=== PATIENT | female | born 1940 | race African-American/Black ===

== ENCOUNTER 2019-04-23 16:21 | Inpatient (IN) | payer OTHER, BC ==
[~2019-04-23] VITALS: Ht 175.3 cm; Wt 99.8 kg
[2019-04-23] VITALS (22 sets, daily range): BP systolic 54–135
[2019-04-23] MEDS ORDERED: LevALBUTEROL HCL 1.25 MG/0.5 ML *CONC.* VIAL.NEB (XOPENEX CONC.) INH PRN (18:15)
[2019-04-23] MEDS ORDERED: IPRATROPIUM BROM 0.5 MG/2.5 ML VIAL.NEB (ATROVENT) INH PRN (18:15)
[2019-04-23] MEDS ORDERED: NOREPINEPHRINE BITARTRATE 4 MG in NS 246 ML IV PRN (18:30)
[2019-04-23] MEDS ORDERED: ALBUMIN HUMAN 5% 500 ML IV ONE (18:30)
[2019-04-23 18:52] LABS: HEMATOCRIT 24.5 % (36-48); MEAN CORPUSCULAR HEMOGLOBIN 32 pg (27-31); MEAN CORPUSCULAR HGB CONC 33 % (32-36); MEAN CORPUSCULAR VOLUME 97 fL (79.0-98.0); RED BLOOD CELL COUNT(AUTO) 2.52 MIL/uL (4.2-6.2); RED CELL DISTRIBUTION WIDTH 19.9 % (9.0-15.0); WHITE BLOOD COUNT (AUTO) 9.9 K/uL (4.8-10.8)
[2019-04-23] MEDS: IPRATROPIUM BROM 0.5 MG/2.5 ML VIAL.NEB (ATROVENT) INH SCH (19:00)
[2019-04-23] MEDS: LevALBUTEROL HCL 1.25 MG/0.5 ML *CONC.* VIAL.NEB (XOPENEX CONC.) INH SCH (19:00)
[2019-04-23 19:01] LABS: INR 1.3 (0.8-1.2); PROTHROMBIN TIME 13.6 SECS (9.5-12.5)
[2019-04-23 19:05] LABS: ALANINE AMINOTRANSFERASE 13 U/L (12-78); ALBUMIN 2.4 g/dL (3.4-4.8); ANION GAP 11 (5-15); ASPARTATE AMINOTRANSFERASE 41 U/L (10-37); CALCIUM 9.1 mg/dL (8.4-11.0); CHLORIDE 99 mmol/L (98-107); CREATININE 2.24 mg/dL (0.55-1.30); GLUCOSE 82 mg/dL (70-99); POTASSIUM 4.2 mmol/L (3.5-5.1); SODIUM SERUM 134 mmol/L (136-145); UREA NITROGEN, BLOOD 55 mg/dL (8-21)
[2019-04-23 19:13] LABS: PLATELET COUNT (AUTO) 27 K/uL (130-430)
[2019-04-23 19:15] LABS: ATYPICAL LYMPHOCYTES % 1 % (0-0); BAND % (MANUAL) 8 % (0-6); BASOPHILS % (MANUAL) 0 % (0-2); EOSINOPHILS % (MANUAL) 2 % (0-7); LYMPHOCYTES % (MANUAL) 4 % (20-46); MONOCYTES % (MANUAL) 7 % (0-11)
[2019-04-23] MEDS ORDERED: NOREPINEPHRINE BITARTRATE 16 MG in NS 234 ML IV PRN (19:30)
[2019-04-23] MEDS ORDERED: VANCOMYCIN HCL 2,000 MG in NS 250 ML IV SCH (21:00)
[2019-04-23] MEDS ORDERED: AMIKACIN SULFATE 500 MG in D5W 100 ML IV ONE (21:00)
[2019-04-23] MEDS ORDERED: CEFEPIME 1 GM in D5W 50 ML IV SCH (21:00)
[2019-04-23] MEDS ORDERED: VANCOMYCIN HCL 1000 MG/VIAL IV ONE (21:52)
[2019-04-23] MEDS ORDERED: metroNIDAZOLE 500 mg/NS 200 ML IV ONE (21:52)
[2019-04-23] MEDS ORDERED: AMIKACIN SULFATE 500 MG/2 ML VIAL ONE (21:52)
[2019-04-23] MEDS: metroNIDAZOLE 500 mg/NS 100 ML IV SCH (22:28)
[2019-04-23] MEDS ORDERED: ALBUMIN HUMAN 25% 100 ML IV ONE (23:02)
[2019-04-23] MEDS ORDERED: ALBUMIN HUMAN 25% 100 ML IV SCH (23:30)
[2019-04-24] VITALS (44 sets, daily range): BP systolic 81–145
[2019-04-24] MEDS: LevALBUTEROL HCL 1.25 MG/0.5 ML *CONC.* VIAL.NEB (XOPENEX CONC.) INH SCH ×4 (00:47→18:58)
[2019-04-24] MEDS: IPRATROPIUM BROM 0.5 MG/2.5 ML VIAL.NEB (ATROVENT) INH SCH ×4 (00:47→18:58)
[2019-04-24] MEDS: metroNIDAZOLE 500 mg/NS 100 ML IV SCH ×3 (05:27→21:11)
[2019-04-24 07:16] LABS: ALANINE AMINOTRANSFERASE 14 U/L (12-78); ALBUMIN 2.8 g/dL (3.4-4.8); ANION GAP 11 (5-15); ASPARTATE AMINOTRANSFERASE 52 U/L (10-37); CALCIUM 9.2 mg/dL (8.4-11.0); CHLORIDE 99 mmol/L (98-107); CREATININE 2.43 mg/dL (0.55-1.30); GLUCOSE 91 mg/dL (70-99); POTASSIUM 4.1 mmol/L (3.5-5.1); SODIUM SERUM 135 mmol/L (136-145); TOTAL BILIRUBIN 2.4 mg/dL (0.0-1.0); UREA NITROGEN, BLOOD 57 mg/dL (8-21)
[2019-04-24 07:17] LABS: BASOPHILS % (AUTO) 0.3 % (0.0-2.0); EOSINOPHILS # (AUTO) 0.7 K/uL (0.0-0.4); EOSINOPHILS % (AUTO) 7.7 % (0.0-4.0); HEMATOCRIT 32.4 % (36-48); HEMOGLOBIN 10.7 g/dL (12.0-16.0); LYMPHOCYTES # (AUTO) 0.8 K/uL (1.0-5.5); LYMPHOCYTES % (AUTO) 8.9 % (20.5-51.5); MEAN CORPUSCULAR HEMOGLOBIN 31 pg (27-31); MEAN CORPUSCULAR HGB CONC 33 % (32-36); MEAN CORPUSCULAR VOLUME 93 fL (79.0-98.0); MONOCYTES # (AUTO) 0.8 K/uL (0.0-1.0); MONOCYTES % (AUTO) 8.7 % (1.7-9.3); NEUTROPHILS # (AUTO) 6.7 K/uL (1.8-7.7); RED CELL DISTRIBUTION WIDTH 20.3 % (9.0-15.0); WHITE BLOOD COUNT (AUTO) 9.1 K/uL (4.8-10.8)
[2019-04-24] MEDS ORDERED: COMMUNICATION ORDER XX ONE (07:30)
[2019-04-24] MEDS ORDERED: *TPN PER PHARMACY XX PRN (07:30)
[2019-04-24 07:32] LABS: PLATELET COUNT (AUTO) 46 K/uL (130-430)
[2019-04-24 07:33] LABS: NEUTROPHILS % (AUTO) 74.4 % (40.0-70.0)
[2019-04-24 07:45] LABS: PHOSPHORUS 3.4 mg/dL (2.7-4.5)
[2019-04-24] MEDS ORDERED: HYDROCORTISONE SOD SUCC 100 MG/2 ML VIAL IVP ONE (08:30)
[2019-04-24] MEDS: HYDROCORTISONE SOD SUCC 100 MG/2 ML VIAL IVP SCH ×2 (13:32→22:10)
[2019-04-24] MEDS ORDERED: DIPH25CA83 PEG (14:25)
[2019-04-24] MEDS ORDERED: HYDC.5% TP (14:25)
[2019-04-24] MEDS ORDERED: PHYTONADIONE 10 MG/ML AMP SUBCUT ONE (14:25)
[2019-04-24] MEDS ORDERED: LR 1,000 ML IV.SOLN IV ONE (14:25)
[2019-04-24] MEDS ORDERED: NS 50 ML BAG IV ONE (14:25)
[2019-04-24] MEDS ORDERED: MIDO10TA PEG (14:25)
[2019-04-24] MEDS ORDERED: FAMO-132 PEG (14:25)
[2019-04-24] MEDS ORDERED: ACET325T53 PEG (14:25)
[2019-04-24] MEDS ORDERED: fentaNYL CITRATE/PF 100 MCG/2 ML AMP IVP ONE (14:25)
[2019-04-24] MEDS ORDERED: DARB100V IJ (14:25)
[2019-04-24] MEDS ORDERED: SEVOFLURANE 15 MIN GAS INH ONE (14:25)
[2019-04-24] MEDS ORDERED: NS IRRIG SOLN 1000 ML IR ONE (14:25)
[2019-04-24] MEDS: NOREPINEPHRINE BITARTRATE 16 MG in NS 234 ML IV PRN (14:28)
[2019-04-24 14:46] LABS: BASOPHILS % (AUTO) 0.3 % (0.0-2.0); EOSINOPHILS # (AUTO) 0.5 K/uL (0.0-0.4); EOSINOPHILS % (AUTO) 5.6 % (0.0-4.0); HEMATOCRIT 30.1 % (36-48); LYMPHOCYTES # (AUTO) 0.5 K/uL (1.0-5.5); LYMPHOCYTES % (AUTO) 5.3 % (20.5-51.5); MEAN CORPUSCULAR HEMOGLOBIN 31 pg (27-31); MEAN CORPUSCULAR HGB CONC 33 % (32-36); MEAN CORPUSCULAR VOLUME 92 fL (79.0-98.0); MONOCYTES # (AUTO) 0.7 K/uL (0.0-1.0); MONOCYTES % (AUTO) 7.9 % (1.7-9.3); NEUTROPHILS # (AUTO) 7.1 K/uL (1.8-7.7); NEUTROPHILS % (AUTO) 80.9 % (40.0-70.0); PLATELET COUNT (AUTO) 70 K/uL (130-430); RED BLOOD CELL COUNT(AUTO) 3.26 MIL/uL (4.2-6.2); RED CELL DISTRIBUTION WIDTH 20.6 % (9.0-15.0); WHITE BLOOD COUNT (AUTO) 8.8 K/uL (4.8-10.8)
[2019-04-24] MEDS ORDERED: fentaNYL CITRATE/PF 100 MCG/2 ML AMP IVP PRN ×2 (16:00)
[2019-04-24] MEDS ORDERED: ONDANSETRON HCL 4 MG/2 ML VIAL IVP PRN (16:00)
[2019-04-24] MEDS ORDERED: CHLO1LIQ2 MC (17:46)
[2019-04-24] MEDS ORDERED: SSREG SUBCUT (17:46)
[2019-04-24] MEDS ORDERED: ALBU2.5V7 INH (17:46)
[2019-04-24] MEDS ORDERED: IPRA4AER INH (17:46)
[2019-04-24] MEDS ORDERED: REGL10 PO (17:46)
[2019-04-24] MEDS ORDERED: BUDE6.9H INH (17:46)
[2019-04-24] MEDS ORDERED: ONDA2VIA IVP (17:46)
[2019-04-24] MEDS ORDERED: LORA1TAB IVP (17:46)
[2019-04-24] MEDS ORDERED: VERA80TA2 IVP (17:46)
[2019-04-24] MEDS ORDERED: [UNRECOGNIZED DRUG - CODE] IV (17:46)
[2019-04-24] MEDS ORDERED: [UNRECOGNIZED DRUG - OTHER] IV SCH ×8 (18:00)
[2019-04-24] MEDS ORDERED: TPN CENTRAL IV SCH ×8 (18:00)
[2019-04-24] MEDS ORDERED: POTASSIUM CHLORIDE IV SCH ×8 (18:00)
[2019-04-24] MEDS ORDERED: SODIUM CHLORIDE IV SCH ×8 (18:00)
[2019-04-24] MEDS: FAT EMULSIONS 250 ML IV SCH (18:08)
[2019-04-24] MEDS ORDERED: DIGOXIN 0.5 MG/2 ML AMP IVP ONE (20:00)
[2019-04-24] MEDS: NS IV SCH (22:12)
[2019-04-24] MEDS: AMIKACIN SULFATE IV SCH (22:12)
[2019-04-25] VITALS (32 sets, daily range): BP systolic 92–139
[2019-04-25] MEDS: INSULIN LISPRO SLIDING SCALE 100 UNITS/ML VIAL (humaLOG) SUBCUT PRN ×4 (00:27→17:26)
[2019-04-25] MEDS: LevALBUTEROL HCL 1.25 MG/0.5 ML *CONC.* VIAL.NEB (XOPENEX CONC.) INH SCH ×4 (01:11→19:47)
[2019-04-25] MEDS: IPRATROPIUM BROM 0.5 MG/2.5 ML VIAL.NEB (ATROVENT) INH SCH ×4 (01:12→19:48)
[2019-04-25] MEDS: metroNIDAZOLE 500 mg/NS 100 ML IV SCH ×3 (04:33→20:09)
[2019-04-25 05:40] LABS: HEMOGLOBIN 10.1 g/dL (12.0-16.0); MEAN CORPUSCULAR HEMOGLOBIN 31 pg (27-31); MEAN CORPUSCULAR HGB CONC 33 % (32-36); MEAN CORPUSCULAR VOLUME 94 fL (79.0-98.0); PLATELET COUNT (AUTO) 64 K/uL (130-430); RED BLOOD CELL COUNT(AUTO) 3.32 MIL/uL (4.2-6.2); RED CELL DISTRIBUTION WIDTH 20.8 % (9.0-15.0); WHITE BLOOD COUNT (AUTO) 10.8 K/uL (4.8-10.8)
[2019-04-25 06:08] LABS: INR 1.5 (0.8-1.2); PROTHROMBIN TIME 15.4 SECS (9.5-12.5)
[2019-04-25 06:19] LABS: ATYPICAL LYMPHOCYTES % 0 % (0-0); BAND % (MANUAL) 21 % (0-6); BASOPHILS % (MANUAL) 0 % (0-2); EOSINOPHILS % (MANUAL) 1 % (0-7); LYMPHOCYTES % (MANUAL) 7 % (20-46); METAMYELOCYTES % 2 % (0-0); MONOCYTES % (MANUAL) 6 % (0-11); MYELOCYTES % 1 % (0-0)
[2019-04-25] MEDS: HYDROCORTISONE SOD SUCC 100 MG/2 ML VIAL IVP SCH ×3 (06:22→21:36)
[2019-04-25 06:50] LABS: ANION GAP 17 (5-15); CALCIUM 8.9 mg/dL (8.4-11.0); CHLORIDE 102 mmol/L (98-107); CREATININE 2.44 mg/dL (0.55-1.30); GLUCOSE 201 mg/dL (70-99); POTASSIUM 4.3 mmol/L (3.5-5.1); SODIUM SERUM 139 mmol/L (136-145); UREA NITROGEN, BLOOD 53 mg/dL (8-21)
[2019-04-25 07:03] LABS: ALANINE AMINOTRANSFERASE 18 U/L (12-78); ALBUMIN 2.4 g/dL (3.4-4.8); ASPARTATE AMINOTRANSFERASE 81 U/L (10-37); PHOSPHORUS 4.2 mg/dL (2.7-4.5)
[2019-04-25] MEDS: PANTOPRAZOLE SODIUM 40 MG/VIAL (PROTONIX) IVP SCH (09:56)
[2019-04-25] MEDS: METOPROLOL TARTRATE 5 MG/5 ML VIAL IVP PRN ×3 (10:50→17:20)
[2019-04-25] MEDS: CEFEPIME 1 GM in D5W 50 ML IV SCH (13:59)
[2019-04-25] MEDS ORDERED: NS IV ONE (15:45)
[2019-04-25] MEDS ORDERED: PHYTONADIONE IV ONE (15:45)
[2019-04-25 16:37] LABS: VANCOMYCIN,RANDOM 22.5 ug/mL
[2019-04-25] MEDS: MORPHINE 2 MG/ML INJ. SYRINGE IVP PRN (17:10)
[2019-04-25] MEDS: FAT EMULSIONS 250 ML IV SCH (17:28)
[2019-04-25] MEDS ORDERED: NA PHOS IV SCH ×9 (18:00)
[2019-04-25] MEDS ORDERED: SODIUM CHLORIDE IV SCH ×9 (18:00)
[2019-04-25] MEDS ORDERED: [UNRECOGNIZED DRUG - OTHER] IV SCH ×9 (18:00)
[2019-04-25] MEDS ORDERED: SODIUM ACETATE IV SCH ×9 (18:00)
[2019-04-25] MEDS ORDERED: TPN CENTRAL IV SCH ×9 (18:00)
[2019-04-25] MEDS: NS IV SCH (21:35)
[2019-04-25] MEDS: AMIKACIN SULFATE IV SCH (21:35)
[2019-04-26] VITALS (27 sets, daily range): BP systolic 93–154
[2019-04-26] MEDS: INSULIN LISPRO SLIDING SCALE 100 UNITS/ML VIAL (humaLOG) SUBCUT PRN ×4 (00:15→17:42)
[2019-04-26] MEDS: MORPHINE 2 MG/ML INJ. SYRINGE IVP PRN (00:19)
[2019-04-26] MEDS: IPRATROPIUM BROM 0.5 MG/2.5 ML VIAL.NEB (ATROVENT) INH SCH ×4 (01:11→19:43)
[2019-04-26] MEDS: LevALBUTEROL HCL 1.25 MG/0.5 ML *CONC.* VIAL.NEB (XOPENEX CONC.) INH SCH ×4 (01:11→19:42)
[2019-04-26] MEDS: METOPROLOL TARTRATE 5 MG/5 ML VIAL IVP PRN ×3 (04:05→20:45)
[2019-04-26] MEDS: metroNIDAZOLE 500 mg/NS 100 ML IV SCH ×3 (04:40→21:01)
[2019-04-26] MEDS: HYDROCORTISONE SOD SUCC 100 MG/2 ML VIAL IVP SCH ×3 (05:40→21:01)
[2019-04-26 06:46] LABS: INR 1.7 (0.8-1.2); PROTHROMBIN TIME 16.6 SECS (9.5-12.5)
[2019-04-26 06:50] LABS: ANION GAP 15 (5-15); CALCIUM 8.8 mg/dL (8.4-11.0); CHLORIDE 102 mmol/L (98-107); CREATININE 2.61 mg/dL (0.55-1.30); GLUCOSE 267 mg/dL (70-99); POTASSIUM 3.8 mmol/L (3.5-5.1); SODIUM SERUM 140 mmol/L (136-145); UREA NITROGEN, BLOOD 63 mg/dL (8-21)
[2019-04-26 07:07] LABS: ALANINE AMINOTRANSFERASE 25 U/L (12-78); ALBUMIN 2.1 g/dL (3.4-4.8); ASPARTATE AMINOTRANSFERASE 107 U/L (10-37); TOTAL BILIRUBIN 1.4 mg/dL (0.0-1.0)
[2019-04-26 07:24] LABS: HEMATOCRIT 32.2 % (36-48); HEMOGLOBIN 10.4 g/dL (12.0-16.0); MEAN CORPUSCULAR HEMOGLOBIN 30 pg (27-31); MEAN CORPUSCULAR HGB CONC 32 % (32-36); MEAN CORPUSCULAR VOLUME 94 fL (79.0-98.0); RED BLOOD CELL COUNT(AUTO) 3.44 MIL/uL (4.2-6.2); RED CELL DISTRIBUTION WIDTH 20.6 % (9.0-15.0); WHITE BLOOD COUNT (AUTO) 15.5 K/uL (4.8-10.8)
[2019-04-26 07:34] LABS: PLATELET COUNT (AUTO) 42 K/uL (130-430)
[2019-04-26 08:06] LABS: PHOSPHORUS 4.3 mg/dL (2.7-4.5)
[2019-04-26] MEDS: PANTOPRAZOLE SODIUM 40 MG/VIAL (PROTONIX) IVP SCH (08:36)
[2019-04-26] MEDS: ENOXAPARIN SODIUM 30 MG/0.3 ML SYRINGE SUBCUT SCH (08:38)
[2019-04-26 09:27] LABS: BAND % (MANUAL) 15 % (0-6); BASOPHILS % (MANUAL) 0 % (0-2); EOSINOPHILS % (MANUAL) 0 % (0-7); LYMPHOCYTES % (MANUAL) 4 % (20-46); MONOCYTES % (MANUAL) 8 % (0-11)
[2019-04-26] MEDS ORDERED: COLISTIMETHATE SODIUM 75 MG in NS 50 ML IV ONE (12:15)
[2019-04-26] MEDS: CEFEPIME 1 GM in D5W 50 ML IV SCH (14:23)
[2019-04-26] MEDS: FAT EMULSIONS 250 ML IV SCH (17:43)
[2019-04-26] MEDS ORDERED: SODIUM ACETATE IV SCH ×9 (18:00)
[2019-04-26] MEDS ORDERED: TPN PERIPHERAL IV SCH ×9 (18:00)
[2019-04-26] MEDS ORDERED: [UNRECOGNIZED DRUG - OTHER] IV SCH ×9 (18:00)
[2019-04-26] MEDS ORDERED: SODIUM CHLORIDE IV SCH ×9 (18:00)
[2019-04-26] MEDS ORDERED: NA PHOS IV SCH ×9 (18:00)
[2019-04-26] MEDS: COLISTIMETHATE SODIUM 75 MG in NS 50 ML IV SCH (21:00)
[2019-04-27] VITALS (28 sets, daily range): BP systolic 90–125
[2019-04-27] MEDS: INSULIN LISPRO SLIDING SCALE 100 UNITS/ML VIAL (humaLOG) SUBCUT PRN ×3 (00:28→18:40)
[2019-04-27] MEDS: LevALBUTEROL HCL 1.25 MG/0.5 ML *CONC.* VIAL.NEB (XOPENEX CONC.) INH SCH ×4 (01:05→19:46)
[2019-04-27] MEDS: IPRATROPIUM BROM 0.5 MG/2.5 ML VIAL.NEB (ATROVENT) INH SCH ×4 (01:06→19:46)
[2019-04-27] MEDS: NOREPINEPHRINE BITARTRATE 16 MG in NS 234 ML IV PRN (02:33)
[2019-04-27] MEDS: metroNIDAZOLE 500 mg/NS 100 ML IV SCH ×3 (05:01→20:24)
[2019-04-27] MEDS: HYDROCORTISONE SOD SUCC 100 MG/2 ML VIAL IVP SCH ×2 (06:08→18:30)
[2019-04-27 06:27] LABS: BASOPHILS % (AUTO) 0.1 % (0.0-2.0); EOSINOPHILS % (AUTO) 0.1 % (0.0-4.0); HEMATOCRIT 30.9 % (36-48); HEMOGLOBIN 10.1 g/dL (12.0-16.0); LYMPHOCYTES # (AUTO) 0.7 K/uL (1.0-5.5); LYMPHOCYTES % (AUTO) 4.1 % (20.5-51.5); MEAN CORPUSCULAR HEMOGLOBIN 31 pg (27-31); MEAN CORPUSCULAR HGB CONC 33 % (32-36); MEAN CORPUSCULAR VOLUME 93 fL (79.0-98.0); MONOCYTES % (AUTO) 5.7 % (1.7-9.3); NEUTROPHILS # (AUTO) 15.6 K/uL (1.8-7.7); RED BLOOD CELL COUNT(AUTO) 3.31 MIL/uL (4.2-6.2); RED CELL DISTRIBUTION WIDTH 20.5 % (9.0-15.0); WHITE BLOOD COUNT (AUTO) 17.3 K/uL (4.8-10.8)
[2019-04-27 06:49] LABS: INR 1.5 (0.8-1.2); PROTHROMBIN TIME 15.6 SECS (9.5-12.5)
[2019-04-27 07:17] LABS: ALANINE AMINOTRANSFERASE 64 U/L (12-78); ALBUMIN 1.9 g/dL (3.4-4.8); ANION GAP 13 (5-15); ASPARTATE AMINOTRANSFERASE 323 U/L (10-37); CALCIUM 8.7 mg/dL (8.4-11.0); CHLORIDE 103 mmol/L (98-107); GLUCOSE 154 mg/dL (70-99); PHOSPHORUS 3.7 mg/dL (2.7-4.5); POTASSIUM 3.4 mmol/L (3.5-5.1); SODIUM SERUM 140 mmol/L (136-145); TOTAL BILIRUBIN 1.4 mg/dL (0.0-1.0); UREA NITROGEN, BLOOD 55 mg/dL (8-21)
[2019-04-27] MEDS: COLISTIMETHATE SODIUM 75 MG in NS 50 ML IV SCH ×2 (08:33→21:34)
[2019-04-27] MEDS: PANTOPRAZOLE SODIUM 40 MG/VIAL (PROTONIX) IVP SCH (08:33)
[2019-04-27] MEDS: ENOXAPARIN SODIUM 30 MG/0.3 ML SYRINGE SUBCUT SCH (08:34)
[2019-04-27 08:50] LABS: PLATELET COUNT (AUTO) 51 K/uL (130-430)
[2019-04-27] MEDS: CEFEPIME 1 GM in D5W 50 ML IV SCH (14:15)
[2019-04-27] MEDS ORDERED: SODIUM ACETATE IV SCH ×9 (18:00)
[2019-04-27] MEDS ORDERED: NA PHOS IV SCH ×9 (18:00)
[2019-04-27] MEDS ORDERED: SODIUM CHLORIDE IV SCH ×9 (18:00)
[2019-04-27] MEDS ORDERED: [UNRECOGNIZED DRUG - OTHER] IV SCH ×9 (18:00)
[2019-04-27] MEDS ORDERED: TPN PERIPHERAL IV SCH ×9 (18:00)
[2019-04-27] MEDS: FAT EMULSIONS 250 ML IV SCH (18:27)
[2019-04-27] MEDS: METOPROLOL TARTRATE 5 MG/5 ML VIAL IVP PRN (18:38)
[2019-04-27] MEDS ORDERED: HEPARIN SODIUM,PORCINE 5000 UNITS/ML VIAL ONE (21:54)
[2019-04-27] MEDS: CEFTAZIDIME/AVIBACTAM 0.94 GM in NS 100 ML IV SCH (22:10)
[2019-04-27] MEDS ORDERED: HEPARIN SODIUM, PORCINE 10,000 UNITS/ 10 ML VIAL MC ONE (22:15)
[2019-04-28] VITALS (28 sets, daily range): BP systolic 69–158
[2019-04-28] MEDS: NOREPINEPHRINE BITARTRATE 16 MG in NS 234 ML IV PRN (00:13)
[2019-04-28] MEDS: LevALBUTEROL HCL 1.25 MG/0.5 ML *CONC.* VIAL.NEB (XOPENEX CONC.) INH SCH ×4 (01:05→19:30)
[2019-04-28] MEDS: IPRATROPIUM BROM 0.5 MG/2.5 ML VIAL.NEB (ATROVENT) INH SCH ×4 (01:06→19:29)
[2019-04-28 05:32] LABS: HEMATOCRIT 30.2 % (36-48); HEMOGLOBIN 9.8 g/dL (12.0-16.0); MEAN CORPUSCULAR HEMOGLOBIN 31 pg (27-31); MEAN CORPUSCULAR HGB CONC 32 % (32-36); MEAN CORPUSCULAR VOLUME 94 fL (79.0-98.0); PLATELET COUNT (AUTO) 74 K/uL (130-430); RED BLOOD CELL COUNT(AUTO) 3.21 MIL/uL (4.2-6.2); RED CELL DISTRIBUTION WIDTH 20.2 % (9.0-15.0); WHITE BLOOD COUNT (AUTO) 20.1 K/uL (4.8-10.8)
[2019-04-28 05:51] LABS: SODIUM SERUM 139 mmol/L (136-145)
[2019-04-28] MEDS: metroNIDAZOLE 500 mg/NS 100 ML IV SCH ×3 (05:51→21:21)
[2019-04-28 05:52] LABS: ANION GAP 14 (5-15); ASPARTATE AMINOTRANSFERASE 74 U/L (10-37); CALCIUM 8.6 mg/dL (8.4-11.0); CHLORIDE 102 mmol/L (98-107); CREATININE 2.62 mg/dL (0.55-1.30); GLUCOSE 170 mg/dL (70-99); TOTAL BILIRUBIN 1.5 mg/dL (0.0-1.0); UREA NITROGEN, BLOOD 68 mg/dL (8-21)
[2019-04-28 05:53] LABS: ALANINE AMINOTRANSFERASE 36 U/L (12-78); ALBUMIN 1.6 g/dL (3.4-4.8)
[2019-04-28 06:05] LABS: ATYPICAL LYMPHOCYTES % 0 % (0-0); BAND % (MANUAL) 15 % (0-6); BASOPHILS % (MANUAL) 0 % (0-2); EOSINOPHILS % (MANUAL) 0 % (0-7); LYMPHOCYTES % (MANUAL) 6 % (20-46); METAMYELOCYTES % 0 % (0-0); MONOCYTES % (MANUAL) 5 % (0-11); MYELOCYTES % 2 % (0-0)
[2019-04-28] MEDS: INSULIN LISPRO SLIDING SCALE 100 UNITS/ML VIAL (humaLOG) SUBCUT PRN ×4 (06:14→23:58)
[2019-04-28] MEDS: HYDROCORTISONE SOD SUCC 100 MG/2 ML VIAL IVP SCH ×2 (06:33→18:05)
[2019-04-28 07:05] LABS: INR 1.3 (0.8-1.2); PROTHROMBIN TIME 13.6 SECS (9.5-12.5)
[2019-04-28] MEDS: COLISTIMETHATE SODIUM 75 MG in NS 50 ML IV SCH ×2 (09:17→21:21)
[2019-04-28] MEDS: ENOXAPARIN SODIUM 30 MG/0.3 ML SYRINGE SUBCUT SCH (10:21)
[2019-04-28 11:32] LABS: TRIGLYCERIDES 152 mg/dL (30-150)
[2019-04-28] MEDS ORDERED: HEPARIN SODIUM,PORCINE 5000 UNITS/ML VIAL IV ONE (13:15)
[2019-04-28] MEDS ORDERED: HEPARIN SODIUM,PORCINE 5000 UNITS/ML VIAL ONE (13:24)
[2019-04-28] MEDS: PANTOPRAZOLE SODIUM 40 MG/VIAL (PROTONIX) IVP SCH (14:07)
[2019-04-28] MEDS: CEFTAZIDIME/AVIBACTAM 0.94 GM in NS 100 ML IV SCH ×2 (14:07→21:22)
[2019-04-28] MEDS ORDERED: BALSAM PERU/CASTOR OIL 60 GM OINT...G. TP ONE (15:30)
[2019-04-28] MEDS ORDERED: SODIUM ACETATE IV SCH ×8 (18:00)
[2019-04-28] MEDS ORDERED: [UNRECOGNIZED DRUG - OTHER] IV SCH ×8 (18:00)
[2019-04-28] MEDS ORDERED: SODIUM CHLORIDE IV SCH ×8 (18:00)
[2019-04-28] MEDS ORDERED: TPN PERIPHERAL IV SCH ×8 (18:00)
[2019-04-28] MEDS: FAT EMULSIONS 250 ML IV SCH (18:09)
[2019-04-29] VITALS (30 sets, daily range): BP systolic 71–172
[2019-04-29] MEDS: LevALBUTEROL HCL 1.25 MG/0.5 ML *CONC.* VIAL.NEB (XOPENEX CONC.) INH SCH ×4 (00:49→19:54)
[2019-04-29] MEDS: IPRATROPIUM BROM 0.5 MG/2.5 ML VIAL.NEB (ATROVENT) INH SCH ×4 (00:50→19:55)
[2019-04-29] MEDS: metroNIDAZOLE 500 mg/NS 100 ML IV SCH (04:56)
[2019-04-29 05:26] LABS: HEMATOCRIT 30.3 % (36-48); HEMOGLOBIN 9.9 g/dL (12.0-16.0); MEAN CORPUSCULAR HEMOGLOBIN 31 pg (27-31); MEAN CORPUSCULAR HGB CONC 33 % (32-36); MEAN CORPUSCULAR VOLUME 94 fL (79.0-98.0); PLATELET COUNT (AUTO) 57 K/uL (130-430); RED BLOOD CELL COUNT(AUTO) 3.23 MIL/uL (4.2-6.2); RED CELL DISTRIBUTION WIDTH 20.5 % (9.0-15.0); WHITE BLOOD COUNT (AUTO) 19.3 K/uL (4.8-10.8)
[2019-04-29 05:46] LABS: ANION GAP 10 (5-15); CALCIUM 8.6 mg/dL (8.4-11.0); CHLORIDE 102 mmol/L (98-107); CREATININE 2.32 mg/dL (0.55-1.30); GLUCOSE 166 mg/dL (70-99); POTASSIUM 3.7 mmol/L (3.5-5.1); SODIUM SERUM 138 mmol/L (136-145); UREA NITROGEN, BLOOD 58 mg/dL (8-21)
[2019-04-29 05:49] LABS: ATYPICAL LYMPHOCYTES % 0 % (0-0); BAND % (MANUAL) 12 % (0-6); BASOPHILS % (MANUAL) 0 % (0-2); EOSINOPHILS % (MANUAL) 0 % (0-7); LYMPHOCYTES % (MANUAL) 7 % (20-46); METAMYELOCYTES % 2 % (0-0); MONOCYTES % (MANUAL) 5 % (0-11); MYELOCYTES % 4 % (0-0)
[2019-04-29 05:51] LABS: INR 1.5 (0.8-1.2); PROTHROMBIN TIME 14.7 SECS (9.5-12.5)
[2019-04-29 05:52] LABS: ALANINE AMINOTRANSFERASE 28 U/L (12-78); ALBUMIN 1.7 g/dL (3.4-4.8); ASPARTATE AMINOTRANSFERASE 39 U/L (10-37); TOTAL BILIRUBIN 1.3 mg/dL (0.0-1.0)
[2019-04-29] MEDS: HYDROCORTISONE SOD SUCC 100 MG/2 ML VIAL IVP SCH ×2 (06:16→19:22)
[2019-04-29] MEDS: INSULIN LISPRO SLIDING SCALE 100 UNITS/ML VIAL (humaLOG) SUBCUT PRN ×3 (06:19→17:27)
[2019-04-29] MEDS: ENOXAPARIN SODIUM 30 MG/0.3 ML SYRINGE SUBCUT SCH (09:00)
[2019-04-29] MEDS: COLISTIMETHATE SODIUM 75 MG in NS 50 ML IV SCH ×2 (09:15→20:44)
[2019-04-29] MEDS: PANTOPRAZOLE SODIUM 40 MG/VIAL (PROTONIX) IVP SCH (09:15)
[2019-04-29] MEDS: BALSAM PERU/CASTOR OIL 60 GM OINT...G. TP SCH (10:26)
[2019-04-29] MEDS: CEFTAZIDIME/AVIBACTAM 0.94 GM in NS 100 ML IV SCH ×2 (10:26→22:00)
[2019-04-29] MEDS: metroNIDAZOLE 250 mg/NS 50 ML IV SCH ×2 (14:40→21:59)
[2019-04-29] MEDS: FAT EMULSIONS 250 ML IV SCH (17:30)
[2019-04-29] MEDS ORDERED: SODIUM CHLORIDE IV SCH ×8 (18:00)
[2019-04-29] MEDS ORDERED: [UNRECOGNIZED DRUG - OTHER] IV SCH ×8 (18:00)
[2019-04-29] MEDS ORDERED: SODIUM ACETATE IV SCH ×8 (18:00)
[2019-04-29] MEDS ORDERED: TPN PERIPHERAL IV SCH ×8 (18:00)
[2019-04-30] VITALS (28 sets, daily range): BP systolic 90–173
[2019-04-30] MEDS: INSULIN LISPRO SLIDING SCALE 100 UNITS/ML VIAL (humaLOG) SUBCUT PRN ×2 (00:21→06:23)
[2019-04-30] MEDS: MORPHINE 2 MG/ML INJ. SYRINGE IVP PRN ×2 (00:24→16:18)
[2019-04-30] MEDS: LevALBUTEROL HCL 1.25 MG/0.5 ML *CONC.* VIAL.NEB (XOPENEX CONC.) INH SCH ×4 (01:39→20:01)
[2019-04-30] MEDS: IPRATROPIUM BROM 0.5 MG/2.5 ML VIAL.NEB (ATROVENT) INH SCH ×4 (01:40→20:00)
[2019-04-30 05:37] LABS: HEMATOCRIT 31.1 % (36-48); HEMOGLOBIN 10.1 g/dL (12.0-16.0); MEAN CORPUSCULAR HEMOGLOBIN 31 pg (27-31); MEAN CORPUSCULAR HGB CONC 32 % (32-36); MEAN CORPUSCULAR VOLUME 96 fL (79.0-98.0); PLATELET COUNT (AUTO) 54 K/uL (130-430); RED BLOOD CELL COUNT(AUTO) 3.25 MIL/uL (4.2-6.2); RED CELL DISTRIBUTION WIDTH 20.8 % (9.0-15.0); WHITE BLOOD COUNT (AUTO) 22.1 K/uL (4.8-10.8)
[2019-04-30 05:55] LABS: ATYPICAL LYMPHOCYTES % 0 % (0-0); BAND % (MANUAL) 15 % (0-6); BASOPHILS % (MANUAL) 0 % (0-2); EOSINOPHILS % (MANUAL) 1 % (0-7); LYMPHOCYTES % (MANUAL) 2 % (20-46); METAMYELOCYTES % 0 % (0-0); MONOCYTES % (MANUAL) 10 % (0-11); MYELOCYTES % 3 % (0-0)
[2019-04-30 05:57] LABS: INR 1.4 (0.8-1.2); PROTHROMBIN TIME 14.4 SECS (9.5-12.5)
[2019-04-30 05:58] LABS: ALANINE AMINOTRANSFERASE 25 U/L (12-78); ALBUMIN 1.7 g/dL (3.4-4.8); ANION GAP 13 (5-15); ASPARTATE AMINOTRANSFERASE 31 U/L (10-37); CALCIUM 8.6 mg/dL (8.4-11.0); CHLORIDE 100 mmol/L (98-107); CREATININE 2.44 mg/dL (0.55-1.30); GLUCOSE 178 mg/dL (70-99); PHOSPHORUS 4.4 mg/dL (2.7-4.5); POTASSIUM 4.1 mmol/L (3.5-5.1); SODIUM SERUM 137 mmol/L (136-145); TOTAL BILIRUBIN 1.2 mg/dL (0.0-1.0); TRIGLYCERIDES 293 mg/dL (30-150); UREA NITROGEN, BLOOD 66 mg/dL (8-21)
[2019-04-30] MEDS: metroNIDAZOLE 250 mg/NS 50 ML IV SCH ×2 (06:22→14:46)
[2019-04-30] MEDS: HYDROCORTISONE SOD SUCC 100 MG/2 ML VIAL IVP SCH ×2 (06:22→19:34)
[2019-04-30] MEDS: COLISTIMETHATE SODIUM 75 MG in NS 50 ML IV SCH (08:30)
[2019-04-30] MEDS ORDERED: BISACODYL 10 MG/SUPPOSITORY RC ONE (08:30)
[2019-04-30] MEDS: PANTOPRAZOLE SODIUM 40 MG/VIAL (PROTONIX) IVP SCH (08:31)
[2019-04-30] MEDS: CEFTAZIDIME/AVIBACTAM 0.94 GM in NS 100 ML IV SCH (09:52)
[2019-04-30] MEDS: BALSAM PERU/CASTOR OIL 60 GM OINT...G. TP SCH (09:53)
[2019-04-30] MEDS: SODIUM ACETATE IV SCH ×8 (18:06)
[2019-04-30] MEDS: SODIUM CHLORIDE IV SCH ×8 (18:06)
[2019-04-30] MEDS: TPN PERIPHERAL IV SCH ×8 (18:06)
[2019-04-30] MEDS: [UNRECOGNIZED DRUG - OTHER] IV SCH ×8 (18:06)
[2019-04-30] MEDS: FAT EMULSIONS 250 ML IV SCH (18:07)
[2019-04-30] MEDS ORDERED: HEPARIN SODIUM,PORCINE 5000 UNITS/ML VIAL ONE (21:46)
[2019-05-01] VITALS (24 sets, daily range): BP systolic 62–197
[2019-05-01] MEDS: COLISTIMETHATE SODIUM 75 MG in NS 50 ML IV SCH ×3 (00:17→20:16)
[2019-05-01] MEDS: CEFTAZIDIME/AVIBACTAM 0.94 GM in NS 100 ML IV SCH ×3 (00:20→20:16)
[2019-05-01] MEDS: metroNIDAZOLE 250 mg/NS 50 ML IV SCH ×4 (00:21→21:12)
[2019-05-01] MEDS: LevALBUTEROL HCL 1.25 MG/0.5 ML *CONC.* VIAL.NEB (XOPENEX CONC.) INH SCH ×4 (01:33→20:01)
[2019-05-01] MEDS: IPRATROPIUM BROM 0.5 MG/2.5 ML VIAL.NEB (ATROVENT) INH SCH ×4 (01:33→20:00)
[2019-05-01] MEDS ORDERED: NOREPINEPHRINE BITARTRATE 16 MG in NS 234 ML IV PRN (04:30)
[2019-05-01] MEDS ORDERED: NOREPINEPHRINE 4 MG/4 ML VIAL IV ONE (04:41)
[2019-05-01 05:55] LABS: BASOPHILS # (AUTO) 0.1 K/uL (0.0-0.2); BASOPHILS % (AUTO) 0.2 % (0.0-2.0); EOSINOPHILS # (AUTO) 0.1 K/uL (0.0-0.4); EOSINOPHILS % (AUTO) 0.4 % (0.0-4.0); HEMOGLOBIN 10.6 g/dL (12.0-16.0); LYMPHOCYTES # (AUTO) 0.6 K/uL (1.0-5.5); LYMPHOCYTES % (AUTO) 1.9 % (20.5-51.5); MEAN CORPUSCULAR HEMOGLOBIN 30 pg (27-31); MEAN CORPUSCULAR HGB CONC 32 % (32-36); MEAN CORPUSCULAR VOLUME 95 fL (79.0-98.0); MONOCYTES # (AUTO) 0.8 K/uL (0.0-1.0); MONOCYTES % (AUTO) 2.7 % (1.7-9.3); NEUTROPHILS # (AUTO) 27.6 K/uL (1.8-7.7); PLATELET COUNT (AUTO) 54 K/uL (130-430); RED BLOOD CELL COUNT(AUTO) 3.49 MIL/uL (4.2-6.2); RED CELL DISTRIBUTION WIDTH 20.5 % (9.0-15.0); WHITE BLOOD COUNT (AUTO) 29.2 K/uL (4.8-10.8)
[2019-05-01 06:43] LABS: INR 1.3 (0.8-1.2); PROTHROMBIN TIME 13.2 SECS (9.5-12.5)
[2019-05-01] MEDS: HYDROCORTISONE SOD SUCC 100 MG/2 ML VIAL IVP SCH ×2 (07:00→18:45)
[2019-05-01 07:23] LABS: ANION GAP 15 (5-15); CHLORIDE 99 mmol/L (98-107); GLUCOSE 174 mg/dL (70-99); POTASSIUM 3.9 mmol/L (3.5-5.1); SODIUM SERUM 134 mmol/L (136-145)
[2019-05-01 07:24] LABS: ALANINE AMINOTRANSFERASE 17 U/L (12-78); ASPARTATE AMINOTRANSFERASE 29 U/L (10-37); CALCIUM 8.8 mg/dL (8.4-11.0); CREATININE 2.24 mg/dL (0.55-1.30); TOTAL BILIRUBIN 1.3 mg/dL (0.0-1.0); UREA NITROGEN, BLOOD 63 mg/dL (8-21)
[2019-05-01 07:27] LABS: ALBUMIN 1.7 g/dL (3.4-4.8); PHOSPHORUS 4.3 mg/dL (2.7-4.5)
[2019-05-01 08:28] LABS: NEUTROPHILS % (AUTO) 94.8 % (40.0-70.0)
[2019-05-01] MEDS: PANTOPRAZOLE SODIUM 40 MG/VIAL (PROTONIX) IVP SCH (09:04)
[2019-05-01] MEDS: BALSAM PERU/CASTOR OIL 60 GM OINT...G. TP SCH (09:04)
[2019-05-01] MEDS ORDERED: TPN PERIPHERAL IV SCH ×8 (18:00)
[2019-05-01] MEDS ORDERED: [UNRECOGNIZED DRUG - OTHER] IV SCH ×8 (18:00)
[2019-05-01] MEDS ORDERED: SODIUM CHLORIDE IV SCH ×8 (18:00)
[2019-05-01] MEDS ORDERED: SODIUM ACETATE IV SCH ×8 (18:00)
[2019-05-01] MEDS: FAT EMULSIONS 250 ML IV SCH (18:12)
[2019-05-01] MEDS: SODIUM CHLORIDE IV SCH ×8 (18:13)
[2019-05-01] MEDS: TPN PERIPHERAL IV SCH ×8 (18:13)
[2019-05-01] MEDS: SODIUM ACETATE IV SCH ×8 (18:13)
[2019-05-01] MEDS: [UNRECOGNIZED DRUG - OTHER] IV SCH ×8 (18:13)
[2019-05-02] VITALS (24 sets, daily range): BP systolic 80–207
[2019-05-02] MEDS: IPRATROPIUM BROM 0.5 MG/2.5 ML VIAL.NEB (ATROVENT) INH SCH ×4 (01:47→19:49)
[2019-05-02] MEDS: LevALBUTEROL HCL 1.25 MG/0.5 ML *CONC.* VIAL.NEB (XOPENEX CONC.) INH SCH ×4 (01:47→19:49)
[2019-05-02] MEDS: HYDROCORTISONE SOD SUCC 100 MG/2 ML VIAL IVP SCH ×2 (06:08→18:26)
[2019-05-02] MEDS: metroNIDAZOLE 250 mg/NS 50 ML IV SCH ×3 (06:09→21:00)
[2019-05-02 06:16] LABS: INR 1.4 (0.8-1.2); PROTHROMBIN TIME 14.5 SECS (9.5-12.5)
[2019-05-02 06:18] LABS: ALANINE AMINOTRANSFERASE 23 U/L (12-78); ALBUMIN 1.7 g/dL (3.4-4.8); ANION GAP 14 (5-15); ASPARTATE AMINOTRANSFERASE 28 U/L (10-37); CHLORIDE 100 mmol/L (98-107); CREATININE 2.47 mg/dL (0.55-1.30); GLUCOSE 162 mg/dL (70-99); PHOSPHORUS 4.5 mg/dL (2.7-4.5); POTASSIUM 3.9 mmol/L (3.5-5.1); SODIUM SERUM 134 mmol/L (136-145); TOTAL BILIRUBIN 1.3 mg/dL (0.0-1.0); TRIGLYCERIDES 183 mg/dL (30-150); UREA NITROGEN, BLOOD 72 mg/dL (8-21)
[2019-05-02 06:29] LABS: HEMATOCRIT 31.6 % (36-48); HEMOGLOBIN 10.3 g/dL (12.0-16.0); MEAN CORPUSCULAR HEMOGLOBIN 31 pg (27-31); MEAN CORPUSCULAR HGB CONC 33 % (32-36); MEAN CORPUSCULAR VOLUME 95 fL (79.0-98.0); PLATELET COUNT (AUTO) 64 K/uL (130-430); RED BLOOD CELL COUNT(AUTO) 3.33 MIL/uL (4.2-6.2); RED CELL DISTRIBUTION WIDTH 20.5 % (9.0-15.0)
[2019-05-02] MEDS: PANTOPRAZOLE SODIUM 40 MG/VIAL (PROTONIX) IVP SCH (09:05)
[2019-05-02] MEDS: COLISTIMETHATE SODIUM 75 MG in NS 50 ML IV SCH (09:05)
[2019-05-02] MEDS: CEFTAZIDIME/AVIBACTAM 0.94 GM in NS 100 ML IV SCH ×2 (09:05→20:56)
[2019-05-02] MEDS: BALSAM PERU/CASTOR OIL 60 GM OINT...G. TP SCH (09:06)
[2019-05-02] MEDS: ALBUMIN HUMAN 25% 50 ML IV SCH ×3 (11:56→22:47)
[2019-05-02] MEDS ORDERED: DEXTROSE 50% JECT 50 ML DISP.SYRIN ONE (12:17)
[2019-05-02 13:25] LABS: BAND % (MANUAL) 6 % (0-6); BASOPHILS % (MANUAL) 0 % (0-2); EOSINOPHILS % (MANUAL) 3 % (0-7); LYMPHOCYTES % (MANUAL) 2 % (20-46); MONOCYTES % (MANUAL) 7 % (0-11)
[2019-05-02] MEDS: FLUCONAZOLE 100 mg/ NS 50 ML IV SCH (13:59)
[2019-05-02] MEDS: INSULIN LISPRO SLIDING SCALE 100 UNITS/ML VIAL (humaLOG) SUBCUT PRN (14:00)
[2019-05-02] MEDS: [UNRECOGNIZED DRUG - OTHER] IV SCH ×8 (17:53)
[2019-05-02] MEDS: SODIUM ACETATE IV SCH ×8 (17:53)
[2019-05-02] MEDS: FAT EMULSIONS 250 ML IV SCH (17:53)
[2019-05-02] MEDS: TPN PERIPHERAL IV SCH ×8 (17:53)
[2019-05-02] MEDS: SODIUM CHLORIDE IV SCH ×8 (17:53)
[2019-05-03] VITALS (27 sets, daily range): BP systolic 84–221
[2019-05-03] MEDS: LevALBUTEROL HCL 1.25 MG/0.5 ML *CONC.* VIAL.NEB (XOPENEX CONC.) INH SCH ×4 (01:12→19:39)
[2019-05-03] MEDS: IPRATROPIUM BROM 0.5 MG/2.5 ML VIAL.NEB (ATROVENT) INH SCH ×4 (01:12→19:39)
[2019-05-03] MEDS: metroNIDAZOLE 250 mg/NS 50 ML IV SCH ×3 (05:15→22:32)
[2019-05-03 06:03] LABS: ALANINE AMINOTRANSFERASE 16 U/L (12-78); ALBUMIN 1.7 g/dL (3.4-4.8); ASPARTATE AMINOTRANSFERASE 24 U/L (10-37); CALCIUM 9.3 mg/dL (8.4-11.0); CREATININE 2.68 mg/dL (0.55-1.30); GLUCOSE 134 mg/dL (70-99); PHOSPHORUS 4.7 mg/dL (2.7-4.5); POTASSIUM 3.3 mmol/L (3.5-5.1); TOTAL BILIRUBIN 1.5 mg/dL (0.0-1.0); UREA NITROGEN, BLOOD 77 mg/dL (8-21)
[2019-05-03 06:08] LABS: CHLORIDE 89 mmol/L (98-107)
[2019-05-03 06:11] LABS: ANION GAP < 3 (5-15); SODIUM SERUM 110 mmol/L (136-145)
[2019-05-03] MEDS: HYDROCORTISONE SOD SUCC 100 MG/2 ML VIAL IVP SCH (06:33)
[2019-05-03 08:04] LABS: BASOPHILS % (AUTO) 0.2 % (0.0-2.0); EOSINOPHILS % (AUTO) 0.3 % (0.0-4.0); MEAN CORPUSCULAR VOLUME 96 fL (79.0-98.0)
[2019-05-03 08:14] LABS: BASOPHILS # (AUTO) 0.1 K/uL (0.0-0.2); EOSINOPHILS # (AUTO) 0.1 K/uL (0.0-0.4); HEMATOCRIT 29.5 % (36-48); HEMOGLOBIN 9.4 g/dL (12.0-16.0); LYMPHOCYTES # (AUTO) 0.6 K/uL (1.0-5.5); LYMPHOCYTES % (AUTO) 1.6 % (20.5-51.5); MEAN CORPUSCULAR HEMOGLOBIN 31 pg (27-31); MEAN CORPUSCULAR HGB CONC 32 % (32-36); MONOCYTES # (AUTO) 0.7 K/uL (0.0-1.0); MONOCYTES % (AUTO) 1.8 % (1.7-9.3); NEUTROPHILS # (AUTO) 35.6 K/uL (1.8-7.7); NEUTROPHILS % (AUTO) 96.1 % (40.0-70.0); PLATELET COUNT (AUTO) 50 K/uL (130-430); RED BLOOD CELL COUNT(AUTO) 3.06 MIL/uL (4.2-6.2); RED CELL DISTRIBUTION WIDTH 22.2 % (9.0-15.0)
[2019-05-03 08:20] LABS: ANION GAP 13 (5-15); CALCIUM 8.5 mg/dL (8.4-11.0); CHLORIDE 104 mmol/L (98-107); GLUCOSE 142 mg/dL (70-99); POTASSIUM 4.5 mmol/L (3.5-5.1); SODIUM SERUM 138 mmol/L (136-145); UREA NITROGEN, BLOOD 78 mg/dL (8-21)
[2019-05-03 08:24] LABS: WHITE BLOOD COUNT (AUTO) 37.1 K/uL (4.8-10.8)
[2019-05-03] MEDS: PANTOPRAZOLE SODIUM 40 MG/VIAL (PROTONIX) IVP SCH (09:22)
[2019-05-03] MEDS: CEFTAZIDIME/AVIBACTAM 0.94 GM in NS 100 ML IV SCH ×2 (09:22→21:22)
[2019-05-03] MEDS: BALSAM PERU/CASTOR OIL 60 GM OINT...G. TP SCH (09:23)
[2019-05-03] MEDS: FLUCONAZOLE 100 mg/ NS 50 ML IV SCH (12:23)
[2019-05-03] MEDS ORDERED: NOREPINEPHRINE BITARTRATE 4 MG in NS 246 ML IV PRN (16:50)
[2019-05-03] MEDS ORDERED: NOREPINEPHRINE 4 MG/4 ML VIAL IV ONE (16:53)
[2019-05-03] MEDS: FAT EMULSIONS 250 ML IV SCH (17:15)
[2019-05-03] MEDS: SODIUM CHLORIDE IV SCH ×8 (17:16)
[2019-05-03] MEDS: SODIUM ACETATE IV SCH ×8 (17:16)
[2019-05-03] MEDS: TPN PERIPHERAL IV SCH ×8 (17:16)
[2019-05-03] MEDS: [UNRECOGNIZED DRUG - OTHER] IV SCH ×8 (17:16)
[2019-05-04] VITALS (27 sets, daily range): BP systolic 69–117
[2019-05-04] MEDS: IPRATROPIUM BROM 0.5 MG/2.5 ML VIAL.NEB (ATROVENT) INH SCH ×3 (01:12→20:01)
[2019-05-04] MEDS: LevALBUTEROL HCL 1.25 MG/0.5 ML *CONC.* VIAL.NEB (XOPENEX CONC.) INH SCH ×3 (01:12→20:01)
[2019-05-04 05:55] LABS: BASOPHILS # (AUTO) 0.1 K/uL (0.0-0.2); BASOPHILS % (AUTO) 0.2 % (0.0-2.0); EOSINOPHILS # (AUTO) 0.4 K/uL (0.0-0.4); EOSINOPHILS % (AUTO) 1.2 % (0.0-4.0); HEMOGLOBIN 9.5 g/dL (12.0-16.0); LYMPHOCYTES # (AUTO) 0.6 K/uL (1.0-5.5); LYMPHOCYTES % (AUTO) 2.1 % (20.5-51.5); MEAN CORPUSCULAR HEMOGLOBIN 31 pg (27-31); MEAN CORPUSCULAR HGB CONC 33 % (32-36); MEAN CORPUSCULAR VOLUME 96 fL (79.0-98.0); MONOCYTES # (AUTO) 0.9 K/uL (0.0-1.0); MONOCYTES % (AUTO) 3.1 % (1.7-9.3); NEUTROPHILS # (AUTO) 28.5 K/uL (1.8-7.7); PLATELET COUNT (AUTO) 62 K/uL (130-430); RED BLOOD CELL COUNT(AUTO) 3.03 MIL/uL (4.2-6.2); RED CELL DISTRIBUTION WIDTH 21.6 % (9.0-15.0)
[2019-05-04 06:04] LABS: WHITE BLOOD COUNT (AUTO) 30.5 K/uL (4.8-10.8)
[2019-05-04] MEDS: metroNIDAZOLE 250 mg/NS 50 ML IV SCH ×3 (06:12→21:07)
[2019-05-04 06:35] LABS: INR 1.4 (0.8-1.2); PROTHROMBIN TIME 14.4 SECS (9.5-12.5)
[2019-05-04 06:44] LABS: ALANINE AMINOTRANSFERASE 21 U/L (12-78); ALBUMIN 1.8 g/dL (3.4-4.8); ANION GAP 14 (5-15); ASPARTATE AMINOTRANSFERASE 30 U/L (10-37); CALCIUM 9.4 mg/dL (8.4-11.0); CHLORIDE 100 mmol/L (98-107); CREATININE 2.37 mg/dL (0.55-1.30); GLUCOSE 122 mg/dL (70-99); POTASSIUM 4.1 mmol/L (3.5-5.1); SODIUM SERUM 137 mmol/L (136-145); TOTAL BILIRUBIN 1.7 mg/dL (0.0-1.0); UREA NITROGEN, BLOOD 69 mg/dL (8-21)
[2019-05-04 08:43] LABS: NEUTROPHILS % (AUTO) 93.4 % (40.0-70.0)
[2019-05-04] MEDS: PANTOPRAZOLE SODIUM 40 MG/VIAL (PROTONIX) IVP SCH (08:52)
[2019-05-04] MEDS: CEFTAZIDIME/AVIBACTAM 0.94 GM in NS 100 ML IV SCH (08:52)
[2019-05-04] MEDS: BALSAM PERU/CASTOR OIL 60 GM OINT...G. TP SCH (08:54)
[2019-05-04] MEDS ORDERED: fentaNYL CITRATE/PF 100 MCG/2 ML AMP ONE (08:56)
[2019-05-04] MEDS: MIDAZOLAM HCL 5 MG/5 ML VIAL ONE ×2 (09:38→09:40)
[2019-05-04 10:46] LABS: PHOSPHORUS 4.4 mg/dL (2.7-4.5)
[2019-05-04] MEDS ORDERED: MICAFUNGIN SODIUM 100 MG in NS 100 ML IV SCH (12:00)
[2019-05-04] MEDS: SODIUM ACETATE IV SCH ×8 (17:29)
[2019-05-04] MEDS: TPN PERIPHERAL IV SCH ×8 (17:29)
[2019-05-04] MEDS: [UNRECOGNIZED DRUG - OTHER] IV SCH ×8 (17:29)
[2019-05-04] MEDS: SODIUM CHLORIDE IV SCH ×8 (17:29)
[2019-05-04] MEDS ORDERED: DEXTROSE 50% JECT 50 ML DISP.SYRIN ONE (22:39)
[2019-05-04] MEDS ORDERED: DEXTROSE 50% JECT 50 ML DISP.SYRIN IVP ONE (22:45)
[2019-05-31 12:11] LABS: HEPATITIS B SURFACE AG Negative (Negative); HEPATITIS C VIRUS AB 0.2 s/co ratio (0.0-0.9)
== END 2019-05-04 22:55 | DRG 853 ==
LOC: SIC 16:21
PROVIDERS: ADMIT Family Medicine; ATTEND Family Medicine
PROC: 5A1955Z Respiratory Ventilation, Greater than 96 Consecutive Hours (ICD-10-PCS; principal; 2019-04-23)
PROC: 3E0336Z Introduction of Nutritional Substance into Peripheral Vein, Percutaneous Approach (ICD-10-PCS; 2019-04-23)
PROC: 0DNW0ZZ Release Peritoneum, Open Approach (ICD-10-PCS; 2019-04-24)
PROC: 5A1D70Z Performance of Urinary Filtration, Intermittent, Less than 6 Hours Per Day (ICD-10-PCS; 2019-04-24)
PROC: 30233N1 Transfusion of Nonautologous Red Blood Cells into Peripheral Vein, Percutaneous Approach (ICD-10-PCS; 2019-04-24)
PROC: 30233R1 Transfusion of Nonautologous Platelets into Peripheral Vein, Percutaneous Approach (ICD-10-PCS; 2019-04-24)
PROC: 0W9G0ZZ Drainage of Peritoneal Cavity, Open Approach (ICD-10-PCS; 2019-04-24)
PROC: 5A1D70Z Performance of Urinary Filtration, Intermittent, Less than 6 Hours Per Day (ICD-10-PCS; 2019-04-26)
PROC: 5A1D70Z Performance of Urinary Filtration, Intermittent, Less than 6 Hours Per Day (ICD-10-PCS; 2019-04-28)
PROC: 5A1D70Z Performance of Urinary Filtration, Intermittent, Less than 6 Hours Per Day (ICD-10-PCS; 2019-04-30)
PROC: 5A1D70Z Performance of Urinary Filtration, Intermittent, Less than 6 Hours Per Day (ICD-10-PCS; 2019-05-03)
PROC: 0DB68ZX Excision of Stomach, Via Natural or Artificial Opening Endoscopic, Diagnostic (ICD-10-PCS; 2019-05-04)
PROC: 0D20XUZ Change Feeding Device in Upper Intestinal Tract, External Approach (ICD-10-PCS; 2019-05-04)
DX: A41.9 Sepsis, unspecified organism (principal); R65.21 Severe sepsis with septic shock; N18.6 End stage renal disease; K65.0 Generalized (acute) peritonitis; D65 Disseminated intravascular coagulation [defibrination syndrome]; J15.9 Unspecified bacterial pneumonia; R53.2 Functional quadriplegia; J96.10 Chronic respiratory failure, unspecified whether with hypoxia or hypercapnia; I13.2 Hypertensive heart and chronic kidney disease with heart failure and with stage 5 chronic kidney disease, or end stage renal disease; I50.22 Chronic systolic (congestive) heart failure; E46 Unspecified protein-calorie malnutrition; R17 Unspecified jaundice; Z99.11 Dependence on respirator [ventilator] status; I42.0 Dilated cardiomyopathy; K31.6 Fistula of stomach and duodenum; B49 Unspecified mycosis; K29.70 Gastritis, unspecified, without bleeding; R10.0 Acute abdomen; R13.10 Dysphagia, unspecified; E66.01 Morbid (severe) obesity due to excess calories; E11.22 Type 2 diabetes mellitus with diabetic chronic kidney disease; I48.2 Chronic atrial fibrillation; I48.0 Paroxysmal atrial fibrillation; D64.9 Anemia, unspecified; Y95 Nosocomial condition; Z86.73 Personal history of transient ischemic attack (TIA), and cerebral infarction without residual deficits; Z93.1 Gastrostomy status; Z99.2 Dependence on renal dialysis; Z93.0 Tracheostomy status; Z86.74 Personal history of sudden cardiac arrest; Z88.6 Allergy status to analgesic agent; Z88.8 Allergy status to other drugs, medicaments and biological substances; Z68.32 Body mass index [BMI] 32.0-32.9, adult
CPT/HCPCS: 36415; 36600; 43246; 71045; 74018; 80048; 80053; 80202-TC; 82803-TC; 82962; 83735-TC; 83880; 84100-TC; 84478-TC; 85007; 85025; 85027; 85384-TC; 85610-TC; 85730-TC; 86803; 86886; 86900; 86901; 86920; 87040-TC; 87070-TC; 87081; 87186-TC; 87205-TC; 87340; 88305; 88312; 88313; 90935; 90937; 93005; 93306; 94002; 94003; 94640; A5061; A6209; C1887; C9113; J0278; J0692; J0713; J0770; J1160; J1450; J1644; J1650; J1720; J2248; J2250; J2270; J3010; J3370; J3430; J3475; J3480; J3490; J7030; J7040; J7050; J7060; J7120; J7131; J7612; P9021; P9034; P9041; P9046

== ENCOUNTER 2019-05-05 12:39 | Inpatient (IN) | payer OTHER, BC ==
[~2019-05-05] VITALS: Ht 175.3 cm; Wt 96.6 kg
[~2019-05-05 12:39] MED LIST: ACET325T53 PEG; ALBU2.5V7 INH; BUDE6.9H INH; CHLO1LIQ2 MC; DARB100V IJ; DIPH25CA83 PEG; FAMO-132 PEG; HYDC.5% TP; IPRA4AER INH; LORA1TAB IVP; MIDO10TA PEG; ONDA2VIA IVP; REGL10 PO; SSREG SUBCUT; VERA80TA2 IVP; [UNRECOGNIZED DRUG - CODE] IV
[2019-05-05 22:15] VITALS: BP_SYST 119
[2019-05-05 23:00] VITALS: BP_SYST 97
[2019-05-05 23:41] VITALS: BP_SYST 106
[2019-05-05 23:44] VITALS: BP_SYST 106
[2019-05-06] VITALS (30 sets, daily range): BP systolic 88–135
[2019-05-06] MEDS ORDERED: GENTAMICIN 100 mg/50 mL NS 50 ML IV ONE ×2 (00:45→01:18)
[2019-05-06] MEDS ORDERED: VANCOMYCIN HCL 1 GM/NS PREMIX 250 ML IV ONE (00:45)
[2019-05-06] MEDS ORDERED: HYDROCORTISONE SOD SUCC 100 MG/2 ML VIAL IVP ONE (00:50)
[2019-05-06] MEDS ORDERED: HYDROCORTISONE SOD SUCC 100 MG/2 ML VIAL ONE (01:15)
[2019-05-06] MEDS ORDERED: VANCOMYCIN HCL 1000 MG/VIAL IV ONE (01:18)
[2019-05-06] MEDS ORDERED: COMMUNICATION ORDER XX ONE ×2 (02:15→10:30)
[2019-05-06] MEDS ORDERED: metroNIDAZOLE 250 mg/NS 50 ML IV SCH (02:30)
[2019-05-06] MEDS ORDERED: metroNIDAZOLE 500 mg/NS 100 ML IV ONE (03:36)
[2019-05-06] MEDS ORDERED: NOREPINEPHRINE 4 MG/4 ML VIAL IV ONE (05:12)
[2019-05-06] MEDS ORDERED: [UNRECOGNIZED DRUG - CODE] IV (05:18)
[2019-05-06] MEDS ORDERED: FLAPM500 IV (05:18)
[2019-05-06] MEDS ORDERED: PANTO IVP (05:18)
[2019-05-06] MEDS ORDERED: METOPROLOL TARTRATE IVP (05:18)
[2019-05-06] MEDS ORDERED: MORPHINE SULFATE IVP (05:18)
[2019-05-06] MEDS: NOREPINEPHRINE BITARTRATE 16 MG in NS 234 ML IV PRN ×2 (05:26→13:08)
[2019-05-06] MEDS: HYDROCORTISONE SOD SUCC 100 MG/2 ML VIAL IVP SCH ×3 (06:05→21:47)
[2019-05-06] MEDS: PANTOPRAZOLE SODIUM 40 MG/VIAL (PROTONIX) IVP SCH (08:30)
[2019-05-06 09:41] LABS: HEMATOCRIT 29.4 % (36-48); HEMOGLOBIN 9.4 g/dL (12.0-16.0); MEAN CORPUSCULAR HEMOGLOBIN 30 pg (27-31); MEAN CORPUSCULAR HGB CONC 32 % (32-36); MEAN CORPUSCULAR VOLUME 96 fL (79.0-98.0); PLATELET COUNT (AUTO) 57 K/uL (130-430); RED BLOOD CELL COUNT(AUTO) 3.08 MIL/uL (4.2-6.2); RED CELL DISTRIBUTION WIDTH 24.2 % (9.0-15.0)
[2019-05-06 09:52] LABS: WHITE BLOOD COUNT (AUTO) 43.5 K/uL (4.8-10.8)
[2019-05-06 09:54] LABS: ALANINE AMINOTRANSFERASE 21 U/L (12-78); ALBUMIN 1.5 g/dL (3.4-4.8); ANION GAP 16 (5-15); ASPARTATE AMINOTRANSFERASE 33 U/L (10-37); CALCIUM 9.6 mg/dL (8.4-11.0); CHLORIDE 96 mmol/L (98-107); CREATININE 2.73 mg/dL (0.55-1.30); GLUCOSE 200 mg/dL (70-99); POTASSIUM 4.3 mmol/L (3.5-5.1); SODIUM SERUM 130 mmol/L (136-145); TOTAL BILIRUBIN 2.2 mg/dL (0.0-1.0); UREA NITROGEN, BLOOD 87 mg/dL (8-21)
[2019-05-06] MEDS ORDERED: GASTROGRAFIN 120 ML ONE (09:55)
[2019-05-06 10:15] LABS: BAND % (MANUAL) 7 % (0-6); BASOPHILS % (MANUAL) 0 % (0-2); EOSINOPHILS % (MANUAL) 0 % (0-7); LYMPHOCYTES % (MANUAL) 1 % (20-46); MONOCYTES % (MANUAL) 0 % (0-11)
[2019-05-06] MEDS ORDERED: LevALBUTEROL HCL 1.25 MG/0.5 ML *CONC.* VIAL.NEB (XOPENEX CONC.) INH PRN (10:30)
[2019-05-06] MEDS ORDERED: ALBUTEROL SULFATE 0.083% 2.5 MG/3 ML VIAL.NEB INH PRN (10:30)
[2019-05-06] MEDS ORDERED: CEFEPIME 1 GM in D5W 50 ML IV SCH (10:30)
[2019-05-06] MEDS ORDERED: PHENYLEPHRINE HCL 30 MG in NS 247 ML IV PRN (10:45)
[2019-05-06] MEDS ORDERED: MEROPENEM 500 MG in NS 50 ML IV ONE (11:15)
[2019-05-06] MEDS: NACL 0.9% 1,000 ML IV SCH (12:45)
[2019-05-06] MEDS: ALBUMIN HUMAN 25% 50 ML IV SCH ×2 (12:46→19:58)
[2019-05-06] MEDS: BISACODYL 5 MG TABLET.DR (DULCOLAX) GT SCH ×2 (12:46→17:23)
[2019-05-06] MEDS: METOPROLOL TARTRATE 5 MG/5 ML VIAL IVP SCH ×3 (12:48→23:32)
[2019-05-06] MEDS: FLUCONAZOLE 200 mg/ NS 100 ML IV SCH (12:49)
[2019-05-06] MEDS ORDERED: HEPARIN SODIUM,PORCINE 5000 UNITS/ML VIAL MC ONE (13:00)
[2019-05-06] MEDS ORDERED: HEPARIN SODIUM,PORCINE 5000 UNITS/ML VIAL ONE (13:10)
[2019-05-06] MEDS: IPRATROPIUM BROM 0.5 MG/2.5 ML VIAL.NEB (ATROVENT) INH SCH ×2 (13:23→20:05)
[2019-05-06] MEDS: LevALBUTEROL HCL 1.25 MG/0.5 ML *CONC.* VIAL.NEB (XOPENEX CONC.) INH SCH ×2 (13:23→20:03)
[2019-05-06] MEDS ORDERED: *PPN PER PHARMACY XX PRN (13:30)
[2019-05-06] MEDS ORDERED: metroNIDAZOLE 500 mg/NS 100 ML IV SCH (14:00)
[2019-05-06] MEDS: metroNIDAZOLE 500 mg/NS 100 ML IV SCH ×2 (14:29→21:48)
[2019-05-06] MEDS ORDERED: SODIUM ACETATE IV SCH ×8 (18:00)
[2019-05-06] MEDS ORDERED: TPN PERIPHERAL IV SCH ×8 (18:00)
[2019-05-06] MEDS ORDERED: [UNRECOGNIZED DRUG - OTHER] IV SCH ×8 (18:00)
[2019-05-06] MEDS ORDERED: SODIUM CHLORIDE IV SCH ×8 (18:00)
[2019-05-06] MEDS: MEROPENEM 500 MG in NS 50 ML IV SCH (21:18)
[2019-05-07] VITALS (36 sets, daily range): BP systolic 99–140
[2019-05-07] MEDS: NOREPINEPHRINE BITARTRATE 16 MG in NS 234 ML IV PRN ×2 (00:36→18:42)
[2019-05-07] MEDS: IPRATROPIUM BROM 0.5 MG/2.5 ML VIAL.NEB (ATROVENT) INH SCH ×4 (00:47→19:37)
[2019-05-07] MEDS: LevALBUTEROL HCL 1.25 MG/0.5 ML *CONC.* VIAL.NEB (XOPENEX CONC.) INH SCH ×4 (00:47→19:36)
[2019-05-07] MEDS: ALBUMIN HUMAN 25% 50 ML IV SCH (03:33)
[2019-05-07] MEDS: metroNIDAZOLE 500 mg/NS 100 ML IV SCH ×3 (05:32→21:35)
[2019-05-07] MEDS: METOPROLOL TARTRATE 5 MG/5 ML VIAL IVP SCH (05:33)
[2019-05-07] MEDS: NACL 0.9% 1,000 ML IV SCH (05:33)
[2019-05-07] MEDS: HYDROCORTISONE SOD SUCC 100 MG/2 ML VIAL IVP SCH ×3 (05:33→21:34)
[2019-05-07 05:49] LABS: BASOPHILS # (AUTO) 0.1 K/uL (0.0-0.2); BASOPHILS % (AUTO) 0.3 % (0.0-2.0); EOSINOPHILS % (AUTO) 0.1 % (0.0-4.0); HEMATOCRIT 27.3 % (36-48); HEMOGLOBIN 8.7 g/dL (12.0-16.0); LYMPHOCYTES # (AUTO) 0.7 K/uL (1.0-5.5); LYMPHOCYTES % (AUTO) 1.9 % (20.5-51.5); MEAN CORPUSCULAR HEMOGLOBIN 30 pg (27-31); MEAN CORPUSCULAR HGB CONC 32 % (32-36); MEAN CORPUSCULAR VOLUME 95 fL (79.0-98.0); MONOCYTES # (AUTO) 1.4 K/uL (0.0-1.0); MONOCYTES % (AUTO) 3.6 % (1.7-9.3); NEUTROPHILS # (AUTO) 36.1 K/uL (1.8-7.7); PLATELET COUNT (AUTO) 63 K/uL (130-430); RED BLOOD CELL COUNT(AUTO) 2.87 MIL/uL (4.2-6.2); RED CELL DISTRIBUTION WIDTH 22.8 % (9.0-15.0)
[2019-05-07 06:26] LABS: ALANINE AMINOTRANSFERASE 17 U/L (12-78); ALBUMIN 1.9 g/dL (3.4-4.8); ANION GAP 16 (5-15); ASPARTATE AMINOTRANSFERASE 25 U/L (10-37); CHLORIDE 97 mmol/L (98-107); CREATININE 2.46 mg/dL (0.55-1.30); GLUCOSE 225 mg/dL (70-99); PHOSPHORUS 4.7 mg/dL (2.7-4.5); SODIUM SERUM 131 mmol/L (136-145); TOTAL BILIRUBIN 2.5 mg/dL (0.0-1.0); TRIGLYCERIDES 76 mg/dL (30-150); UREA NITROGEN, BLOOD 79 mg/dL (8-21)
[2019-05-07] MEDS ORDERED: LABETALOL 100 MG/ 20ML VIAL IVP SCH (08:15)
[2019-05-07] MEDS: PANTOPRAZOLE SODIUM 40 MG/VIAL (PROTONIX) IVP SCH (08:17)
[2019-05-07] MEDS: MEROPENEM 500 MG in NS 50 ML IV SCH ×2 (08:19→21:34)
[2019-05-07 08:32] LABS: WHITE BLOOD COUNT (AUTO) 38.3 K/uL (4.8-10.8)
[2019-05-07 11:19] LABS: NEUTROPHILS % (AUTO) 94.1 % (40.0-70.0)
[2019-05-07] MEDS: FLUCONAZOLE 200 mg/ NS 100 ML IV SCH (12:09)
[2019-05-07] MEDS ORDERED: TPN PERIPHERAL IV SCH ×8 (18:00)
[2019-05-07] MEDS ORDERED: SODIUM ACETATE IV SCH ×8 (18:00)
[2019-05-07] MEDS ORDERED: SODIUM CHLORIDE IV SCH ×8 (18:00)
[2019-05-07] MEDS ORDERED: [UNRECOGNIZED DRUG - OTHER] IV SCH ×8 (18:00)
[2019-05-08] VITALS (30 sets, daily range): BP systolic 92–134
[2019-05-08] MEDS: LevALBUTEROL HCL 1.25 MG/0.5 ML *CONC.* VIAL.NEB (XOPENEX CONC.) INH SCH ×4 (01:41→19:45)
[2019-05-08] MEDS: IPRATROPIUM BROM 0.5 MG/2.5 ML VIAL.NEB (ATROVENT) INH SCH ×4 (01:42→19:45)
[2019-05-08 06:25] LABS: BASOPHILS % (AUTO) 0.1 % (0.0-2.0); EOSINOPHILS # (AUTO) 0.1 K/uL (0.0-0.4); EOSINOPHILS % (AUTO) 0.4 % (0.0-4.0); HEMATOCRIT 28.1 % (36-48); HEMOGLOBIN 8.9 g/dL (12.0-16.0); LYMPHOCYTES # (AUTO) 0.5 K/uL (1.0-5.5); LYMPHOCYTES % (AUTO) 1.5 % (20.5-51.5); MEAN CORPUSCULAR HEMOGLOBIN 31 pg (27-31); MEAN CORPUSCULAR HGB CONC 32 % (32-36); MEAN CORPUSCULAR VOLUME 96 fL (79.0-98.0); MONOCYTES # (AUTO) 1.3 K/uL (0.0-1.0); MONOCYTES % (AUTO) 3.7 % (1.7-9.3); NEUTROPHILS # (AUTO) 32.5 K/uL (1.8-7.7); PLATELET COUNT (AUTO) 51 K/uL (130-430); RED BLOOD CELL COUNT(AUTO) 2.93 MIL/uL (4.2-6.2); RED CELL DISTRIBUTION WIDTH 23.5 % (9.0-15.0)
[2019-05-08 06:42] LABS: ALANINE AMINOTRANSFERASE 16 U/L (12-78); ALBUMIN 1.6 g/dL (3.4-4.8); ANION GAP 18 (5-15); ASPARTATE AMINOTRANSFERASE 29 U/L (10-37); CALCIUM 10.3 mg/dL (8.4-11.0); CHLORIDE 96 mmol/L (98-107); CREATININE 2.78 mg/dL (0.55-1.30); GLUCOSE 261 mg/dL (70-99); PHOSPHORUS 5.4 mg/dL (2.7-4.5); POTASSIUM 4.4 mmol/L (3.5-5.1); SODIUM SERUM 131 mmol/L (136-145); TOTAL BILIRUBIN 2.5 mg/dL (0.0-1.0); UREA NITROGEN, BLOOD 96 mg/dL (8-21)
[2019-05-08] MEDS: metroNIDAZOLE 500 mg/NS 100 ML IV SCH ×3 (06:44→23:51)
[2019-05-08] MEDS: HYDROCORTISONE SOD SUCC 100 MG/2 ML VIAL IVP SCH ×3 (06:45→23:18)
[2019-05-08 07:34] LABS: NEUTROPHILS % (AUTO) 94.3 % (40.0-70.0); WHITE BLOOD COUNT (AUTO) 34.5 K/uL (4.8-10.8)
[2019-05-08] MEDS: MEROPENEM 500 MG in NS 50 ML IV SCH ×2 (08:39→22:50)
[2019-05-08] MEDS: PANTOPRAZOLE SODIUM 40 MG/VIAL (PROTONIX) IVP SCH (08:39)
[2019-05-08] MEDS: FLUCONAZOLE 200 mg/ NS 100 ML IV SCH (11:39)
[2019-05-08] MEDS: NOREPINEPHRINE BITARTRATE 16 MG in NS 234 ML IV PRN (15:02)
[2019-05-08] MEDS: FAT EMULSIONS 250 ML IV SCH (17:23)
[2019-05-08] MEDS: SODIUM ACETATE IV SCH ×8 (17:24)
[2019-05-08] MEDS: TPN PERIPHERAL IV SCH ×8 (17:24)
[2019-05-08] MEDS: SODIUM CHLORIDE IV SCH ×8 (17:24)
[2019-05-08] MEDS: [UNRECOGNIZED DRUG - OTHER] IV SCH ×8 (17:24)
[2019-05-09] VITALS (30 sets, daily range): BP systolic 89–114
[2019-05-09] MEDS: LevALBUTEROL HCL 1.25 MG/0.5 ML *CONC.* VIAL.NEB (XOPENEX CONC.) INH SCH ×4 (01:15→19:57)
[2019-05-09] MEDS: IPRATROPIUM BROM 0.5 MG/2.5 ML VIAL.NEB (ATROVENT) INH SCH ×4 (01:15→19:57)
[2019-05-09] MEDS: metroNIDAZOLE 500 mg/NS 100 ML IV SCH (04:59)
[2019-05-09] MEDS: HYDROCORTISONE SOD SUCC 100 MG/2 ML VIAL IVP SCH ×3 (05:00→21:52)
[2019-05-09 06:31] LABS: BASOPHILS # (AUTO) 0.1 K/uL (0.0-0.2); BASOPHILS % (AUTO) 0.3 % (0.0-2.0); HEMATOCRIT 29.8 % (36-48); HEMOGLOBIN 9.6 g/dL (12.0-16.0); LYMPHOCYTES # (AUTO) 0.4 K/uL (1.0-5.5); LYMPHOCYTES % (AUTO) 1.4 % (20.5-51.5); MEAN CORPUSCULAR HEMOGLOBIN 31 pg (27-31); MEAN CORPUSCULAR HGB CONC 32 % (32-36); MEAN CORPUSCULAR VOLUME 97 fL (79.0-98.0); MONOCYTES # (AUTO) 0.9 K/uL (0.0-1.0); NEUTROPHILS # (AUTO) 29.7 K/uL (1.8-7.7); NEUTROPHILS % (AUTO) 95.3 % (40.0-70.0); RED BLOOD CELL COUNT(AUTO) 3.09 MIL/uL (4.2-6.2); RED CELL DISTRIBUTION WIDTH 24.3 % (9.0-15.0)
[2019-05-09 06:42] LABS: ALANINE AMINOTRANSFERASE 18 U/L (12-78); ALBUMIN 1.6 g/dL (3.4-4.8); ANION GAP 16 (5-15); ASPARTATE AMINOTRANSFERASE 29 U/L (10-37); CALCIUM 9.7 mg/dL (8.4-11.0); CHLORIDE 98 mmol/L (98-107); CREATININE 2.44 mg/dL (0.55-1.30); GLUCOSE 316 mg/dL (70-99); PHOSPHORUS 4.9 mg/dL (2.7-4.5); POTASSIUM 4.4 mmol/L (3.5-5.1); SODIUM SERUM 133 mmol/L (136-145); TOTAL BILIRUBIN 2.7 mg/dL (0.0-1.0); UREA NITROGEN, BLOOD 86 mg/dL (8-21)
[2019-05-09 07:06] LABS: PLATELET COUNT (AUTO) 38 K/uL (130-430)
[2019-05-09 07:07] LABS: WHITE BLOOD COUNT (AUTO) 31.1 K/uL (4.8-10.8)
[2019-05-09] MEDS: PANTOPRAZOLE SODIUM 40 MG/VIAL (PROTONIX) IVP SCH (09:40)
[2019-05-09] MEDS: MEROPENEM 500 MG in NS 50 ML IV SCH (09:41)
[2019-05-09] MEDS: INSULIN REGULAR, HUMAN 100 UNITS/ML, 10 ML VIAL (humuLIN R) SUBCUT PRN ×3 (11:49→23:46)
[2019-05-09] MEDS: PIPERACILLIN/TAZO 2.25G/DEX-IS 50 ML IV SCH ×3 (12:13→23:41)
[2019-05-09] MEDS: FLUCONAZOLE 200 mg/ NS 100 ML IV SCH (13:17)
[2019-05-09] MEDS: TPN PERIPHERAL IV SCH ×8 (16:03)
[2019-05-09] MEDS: SODIUM CHLORIDE IV SCH ×8 (16:03)
[2019-05-09] MEDS: SODIUM ACETATE IV SCH ×8 (16:03)
[2019-05-09] MEDS: [UNRECOGNIZED DRUG - OTHER] IV SCH ×8 (16:03)
[2019-05-09] MEDS: NOREPINEPHRINE BITARTRATE 16 MG in NS 234 ML IV PRN (16:04)
[2019-05-09] MEDS: FAT EMULSIONS 250 ML IV SCH (17:40)
[2019-05-10] VITALS (30 sets, daily range): BP systolic 80–122
[2019-05-10] MEDS: LevALBUTEROL HCL 1.25 MG/0.5 ML *CONC.* VIAL.NEB (XOPENEX CONC.) INH SCH ×4 (01:00→19:46)
[2019-05-10] MEDS: IPRATROPIUM BROM 0.5 MG/2.5 ML VIAL.NEB (ATROVENT) INH SCH ×4 (01:00→19:45)
[2019-05-10] MEDS: HYDROCORTISONE SOD SUCC 100 MG/2 ML VIAL IVP SCH ×3 (05:12→20:58)
[2019-05-10] MEDS: PIPERACILLIN/TAZO 2.25G/DEX-IS 50 ML IV SCH ×3 (05:13→17:31)
[2019-05-10] MEDS: INSULIN REGULAR, HUMAN 100 UNITS/ML, 10 ML VIAL (humuLIN R) SUBCUT PRN ×3 (05:16→17:29)
[2019-05-10 05:58] LABS: LYMPHOCYTES # (AUTO) 0.4 K/uL (1.0-5.5); MEAN CORPUSCULAR HGB CONC 32 % (32-36); RED CELL DISTRIBUTION WIDTH 24.3 % (9.0-15.0)
[2019-05-10 06:19] LABS: BASOPHILS % (AUTO) 0.1 % (0.0-2.0); HEMATOCRIT 27.9 % (36-48); LYMPHOCYTES % (AUTO) 1.1 % (20.5-51.5); MEAN CORPUSCULAR HEMOGLOBIN 31 pg (27-31); MEAN CORPUSCULAR VOLUME 98 fL (79.0-98.0); MONOCYTES # (AUTO) 0.7 K/uL (0.0-1.0); MONOCYTES % (AUTO) 2.1 % (1.7-9.3); NEUTROPHILS # (AUTO) 30.6 K/uL (1.8-7.7); RED BLOOD CELL COUNT(AUTO) 2.85 MIL/uL (4.2-6.2)
[2019-05-10 06:23] LABS: ALANINE AMINOTRANSFERASE 17 U/L (12-78); ALBUMIN 1.6 g/dL (3.4-4.8); ANION GAP 15 (5-15); ASPARTATE AMINOTRANSFERASE 27 U/L (10-37); CALCIUM 9.6 mg/dL (8.4-11.0); CHLORIDE 97 mmol/L (98-107); CREATININE 2.52 mg/dL (0.55-1.30); GLUCOSE 311 mg/dL (70-99); PHOSPHORUS 4.8 mg/dL (2.7-4.5); POTASSIUM 4.3 mmol/L (3.5-5.1); SODIUM SERUM 132 mmol/L (136-145); TOTAL BILIRUBIN 2.6 mg/dL (0.0-1.0); TRIGLYCERIDES 231 mg/dL (30-150); UREA NITROGEN, BLOOD 96 mg/dL (8-21)
[2019-05-10 06:25] LABS: WHITE BLOOD COUNT (AUTO) 31.7 K/uL (4.8-10.8)
[2019-05-10 06:27] LABS: PLATELET COUNT (AUTO) 24 K/uL (130-430)
[2019-05-10 08:14] LABS: NEUTROPHILS % (AUTO) 96.7 % (40.0-70.0)
[2019-05-10] MEDS: PANTOPRAZOLE SODIUM 40 MG/VIAL (PROTONIX) IVP SCH (08:56)
[2019-05-10] MEDS: FLUCONAZOLE 200 mg/ NS 100 ML IV SCH (12:57)
[2019-05-10] MEDS: NOREPINEPHRINE BITARTRATE 16 MG in NS 234 ML IV PRN (15:28)
[2019-05-10] MEDS: FAT EMULSIONS 250 ML IV SCH (17:29)
[2019-05-10] MEDS ORDERED: SODIUM CHLORIDE IV SCH ×9 (18:00)
[2019-05-10] MEDS ORDERED: [UNRECOGNIZED DRUG - OTHER] IV SCH ×9 (18:00)
[2019-05-10] MEDS ORDERED: SODIUM ACETATE IV SCH ×9 (18:00)
[2019-05-10] MEDS ORDERED: TPN PERIPHERAL IV SCH ×9 (18:00)
[2019-05-11] VITALS (16 sets, daily range): BP systolic 73–117
[2019-05-11] MEDS: PIPERACILLIN/TAZO 2.25G/DEX-IS 50 ML IV SCH ×3 (00:07→12:20)
[2019-05-11] MEDS: IPRATROPIUM BROM 0.5 MG/2.5 ML VIAL.NEB (ATROVENT) INH SCH ×3 (01:18→13:42)
[2019-05-11] MEDS: LevALBUTEROL HCL 1.25 MG/0.5 ML *CONC.* VIAL.NEB (XOPENEX CONC.) INH SCH ×3 (01:18→13:42)
[2019-05-11] MEDS: HYDROCORTISONE SOD SUCC 100 MG/2 ML VIAL IVP SCH ×2 (05:36→14:17)
[2019-05-11 05:56] LABS: BASOPHILS # (AUTO) 0.1 K/uL (0.0-0.2); BASOPHILS % (AUTO) 0.4 % (0.0-2.0); HEMATOCRIT 27.4 % (36-48); HEMOGLOBIN 8.9 g/dL (12.0-16.0); LYMPHOCYTES # (AUTO) 0.4 K/uL (1.0-5.5); LYMPHOCYTES % (AUTO) 1.1 % (20.5-51.5); MEAN CORPUSCULAR HEMOGLOBIN 31 pg (27-31); MEAN CORPUSCULAR HGB CONC 33 % (32-36); MEAN CORPUSCULAR VOLUME 97 fL (79.0-98.0); MONOCYTES # (AUTO) 0.5 K/uL (0.0-1.0); MONOCYTES % (AUTO) 1.6 % (1.7-9.3); NEUTROPHILS # (AUTO) 33.3 K/uL (1.8-7.7); RED BLOOD CELL COUNT(AUTO) 2.84 MIL/uL (4.2-6.2); RED CELL DISTRIBUTION WIDTH 24.3 % (9.0-15.0)
[2019-05-11 06:18] LABS: PLATELET COUNT (AUTO) 18 K/uL (130-430); WHITE BLOOD COUNT (AUTO) 34.4 K/uL (4.8-10.8)
[2019-05-11 06:29] LABS: NEUTROPHILS % (AUTO) 96.9 % (40.0-70.0)
[2019-05-11 06:35] LABS: ALANINE AMINOTRANSFERASE 18 U/L (12-78); ALBUMIN 1.4 g/dL (3.4-4.8); ANION GAP 17 (5-15); ASPARTATE AMINOTRANSFERASE 29 U/L (10-37); CALCIUM 9.3 mg/dL (8.4-11.0); CHLORIDE 96 mmol/L (98-107); CREATININE 2.64 mg/dL (0.55-1.30); GLUCOSE 259 mg/dL (70-99); PHOSPHORUS 5.2 mg/dL (2.7-4.5); POTASSIUM 4.7 mmol/L (3.5-5.1); SODIUM SERUM 132 mmol/L (136-145)
[2019-05-11 06:58] LABS: UREA NITROGEN, BLOOD 112 mg/dL (8-21)
[2019-05-11] MEDS: PANTOPRAZOLE SODIUM 40 MG/VIAL (PROTONIX) IVP SCH (09:21)
[2019-05-11] MEDS: ALBUMIN HUMAN 25% 50 ML IV SCH ×2 (09:51→14:17)
[2019-05-11] MEDS ORDERED: SODIUM BICARBONATE 8.4% VIAL 50 MEQ/50 ML VIAL INJ ONE (10:15)
[2019-05-11] MEDS ORDERED: SODIUM BICARBONATE 8.4% JECT 50 MEQ/50 ML SYRINGE IVP ONE ×2 (10:30→17:11)
[2019-05-11] MEDS: NOREPINEPHRINE BITARTRATE 16 MG in NS 234 ML IV PRN (12:21)
[2019-05-11] MEDS ORDERED: MICAFUNGIN SODIUM 100 MG in NS 100 ML IV SCH (13:00)
[2019-05-11] MEDS: FLUCONAZOLE 200 mg/ NS 100 ML IV SCH (13:12)
[2019-05-11] MEDS: INSULIN REGULAR, HUMAN 100 UNITS/ML, 10 ML VIAL (humuLIN R) SUBCUT PRN (13:15)
[2019-05-11] MEDS ORDERED: NS 1000 ML IV.SOLN IV ONE (17:11)
[2019-05-11] MEDS ORDERED: LIDOCAINE JECT 2% PF 100 MG/5ML SYRINGE IVP ONE (17:11)
[2019-05-11] MEDS ORDERED: NORMAL SALINE 10 ML VIAL IVP ONE (17:11)
[2019-05-11] MEDS ORDERED: EPINEPHrine JECT 1 MG/10 ML SYR IVP ONE (17:11)
[2019-05-11] MEDS ORDERED: ATROPINE SULFATE 1 MG/10 ML SYRINGE IVP ONE (17:11)
[2019-05-11] MEDS ORDERED: SODIUM ACETATE IV SCH ×9 (18:00)
[2019-05-11] MEDS ORDERED: SODIUM CHLORIDE IV SCH ×9 (18:00)
[2019-05-11] MEDS ORDERED: TPN PERIPHERAL IV SCH ×9 (18:00)
[2019-05-11] MEDS ORDERED: [UNRECOGNIZED DRUG - OTHER] IV SCH ×9 (18:00)
== END 2019-05-11 17:12 | disposition expired | DRG 314 ==
LOC: SIC 22:16
PROVIDERS: ADMIT Family Medicine; ATTEND Family Medicine
PROC: 5A1955Z Respiratory Ventilation, Greater than 96 Consecutive Hours (ICD-10-PCS; principal; 2019-05-05)
PROC: 5A1D70Z Performance of Urinary Filtration, Intermittent, Less than 6 Hours Per Day (ICD-10-PCS; 2019-05-06)
PROC: 3E0436Z Introduction of Nutritional Substance into Central Vein, Percutaneous Approach (ICD-10-PCS; 2019-05-06)
PROC: 5A1D70Z Performance of Urinary Filtration, Intermittent, Less than 6 Hours Per Day (ICD-10-PCS; 2019-05-08)
PROC: 5A12012 Performance of Cardiac Output, Single, Manual (ICD-10-PCS; 2019-05-11)
DX: T80.211A Bloodstream infection due to central venous catheter, initial encounter (principal); A41.9 Sepsis, unspecified organism; R65.21 Severe sepsis with septic shock; N18.6 End stage renal disease; G82.50 Quadriplegia, unspecified; E43 Unspecified severe protein-calorie malnutrition; J15.1 Pneumonia due to Pseudomonas; D65 Disseminated intravascular coagulation [defibrination syndrome]; K94.23 Gastrostomy malfunction; J96.10 Chronic respiratory failure, unspecified whether with hypoxia or hypercapnia; G93.1 Anoxic brain damage, not elsewhere classified; I42.9 Cardiomyopathy, unspecified; B49 Unspecified mycosis; I27.20 Pulmonary hypertension, unspecified; Y83.3 Surgical operation with formation of external stoma as the cause of abnormal reaction of the patient, or of later complication, without mention of misadventure at the time of the procedure; I08.3 Combined rheumatic disorders of mitral, aortic and tricuspid valves; E11.51 Type 2 diabetes mellitus with diabetic peripheral angiopathy without gangrene; E11.22 Type 2 diabetes mellitus with diabetic chronic kidney disease; D63.8 Anemia in other chronic diseases classified elsewhere; I48.2 Chronic atrial fibrillation; I48.0 Paroxysmal atrial fibrillation; Z99.2 Dependence on renal dialysis; Z74.01 Bed confinement status; Z87.891 Personal history of nicotine dependence; Z86.74 Personal history of sudden cardiac arrest; Z86.73 Personal history of transient ischemic attack (TIA), and cerebral infarction without residual deficits; Z88.6 Allergy status to analgesic agent; Y92.89 Other specified places as the place of occurrence of the external cause; Z93.0 Tracheostomy status; Z87.01 Personal history of pneumonia (recurrent); Z68.31 Body mass index [BMI] 31.0-31.9, adult; I46.9 Cardiac arrest, cause unspecified
CPT/HCPCS: 36415; 36600; 71045; 74018; 74240-TC; 80053; 82803-TC; 82962; 83735-TC; 84100-TC; 84311; 84478-TC; 85007; 85025; 85027; 86900; 86901; 87040-TC; 87070-TC; 87081; 87186-TC; 87205-TC; 90935; 90937; 93923; 94002; 94003; 94640; A6209; C9113; J0171; J0461; J1450; J1580; J1644; J1720; J1815; J2185; J2248; J2370; J2543; J3370; J3475; J3480; J3490; J7030; J7050; J7131; J7612; P9046; Q9963